=== PATIENT | male | born 1950 | race Caucasian/White ===

== ENCOUNTER → 2020-12-31 | Outpatient (CLI) | payer BC ==
[~2020-12-31] MED LIST: CARDURA 2MG TAB2 MG PO; DIGOX250 MCG PO; ELIQUIS5 MG PO; HYDRALAZINE HCL PO; HYDRALAZINE HCL50 MG PO; HYDRALAZINE PO; IBUPROFEN800 MG PO; ISORDIL TAB 3030 MG PO; LANOXIN TAB 00.25 MG PO; LASIX 40 MG TAB40 MG PO; LASIX40 MG PO; LOPRESSOR 25 MG25 MG PO; METOPROLOL SUCC25 MG PO; MULTAQ400 MG PO; NITROSTAT0.4 MG SL; OMNICEF 300 MG300 MG PO; QUINAPRIL-HCTZ1 EAC2 PO; VENTOLIN HFA 66.7 GM INH; VIT D-3 PO; VITAMIN D35000 UNIT PO
== END ==
LOC: HEART 5 11:17
DX: I48.91 Unspecified atrial fibrillation (principal); R06.02 Shortness of breath; R93.1 Abnormal findings on diagnostic imaging of heart and coronary circulation; I08.0 Rheumatic disorders of both mitral and aortic valves
CPT/HCPCS: 93306

== ENCOUNTER → 2021-05-06 | Outpatient (CLI) | payer BC | LOC: KOH-I 15:00 | DX: M25.572 Pain in left ankle and joints of left foot (principal); M19.072 Primary osteoarthritis, left ankle and foot | CPT/HCPCS: 73610 ==

== ENCOUNTER → 2022-06-17 | Outpatient (CLI) | payer BC | LOC: KOH-I 09:59 | DX: M25.572 Pain in left ankle and joints of left foot (principal) | CPT/HCPCS: 73610 ==

== ENCOUNTER → 2022-08-06 | Outpatient (CLI) | payer BC | LOC: KOH-I 13:09 | DX: M17.0 Bilateral primary osteoarthritis of knee (principal) | CPT/HCPCS: 73562 ==